=== PATIENT | male | born 1990 ===

== ENCOUNTER 2021-07-26 15:07 | Outpatient (REF) | payer MEDICAID, SELFPAY ==
[2021-07-26 15:25] LABS: HCT 41.8 % (40.0-50.0); HGB 14.4 g/dL (13.5-17.5); MCH 29.9 pg (27.0-33.0); MCHC 34.4 % (32.0-36.0); MCV 86.9 fL (80-95); MPV 9.5 fL (8.0-11.0); Platelet Count 283 10^3/uL (130-400); RBC 4.81 10^6/uL (4.36-5.78); RDW 11.5 % (11.8-14.1); RDW-SD 36.6 fL; WBC 4.58 10^3/uL (4.4-10.8)
[2021-07-26 16:09] LABS: ALT 25 U/L (16-63); AST 17 U/L (15-37); Albumin 4.3 g/dL (3.4-5.0); Alkaline Phosphatase 63 U/L (46-116); Anion Gap 7.5 mmol/L (3-11); BUN 16 mg/dL (7-18); Bilirubin, Total 0.4 mg/dL (0.2-1.0); CO2 31.5 mmol/L (21.0-32.0); CREATININE 0.9 mg/dL (0.70-1.30); Calcium 9.2 mg/dL (8.5-10.1); Chloride 103 mmol/L (98-107); Ferritin 113 ng/mL (26-388); Glucose 77 mg/dL (74-106); Potassium 4.3 mmol/L (3.5-5.1); Sodium 142 mmol/L (136-145); Total Protein 7.3 g/dL (6.4-8.2); Vitamin B12 631 pg/mL (193-986)
== END 2021-07-26 15:08 | disposition home or self-care (01) ==
LOC: NCHCN 15:07
PROVIDERS: Visit Provider Physician Assistant
DX: R53.83 Other fatigue (principal)
CPT/HCPCS: 80053; 85027; 82607; 82728

== ENCOUNTER 2021-10-12 13:52 | Outpatient (REF) | payer MEDICAID, SELFPAY ==
[2021-10-12 15:31] LABS: Abs Immature Grans 0.02 10^3/uL (0.0-0.06); Absolute Basophil Count 0.07 10^3/uL (0.0-0.2); Absolute Eosinophil Count 0.38 10^3/uL (0.0-0.7); Absolute Lymphocyte Count 1.53 10^3/uL (1.2-3.4); Absolute Neutrophil Count 3.08 10^3/uL (1.2-6.7); Basophils % 1.3; Eosinophils % 6.8; HCT 42.7 % (40.0-50.0); HGB 14.5 g/dL (13.5-17.5); Immature Grans % 0.4; Lymphocytes % 27.4; MCH 30.1 pg (27.0-33.0); MCV 88.8 fL (80-95); MPV 9.3 fL (8.0-11.0); Neutrophils % 55.1; Nucleated RBC 0 %; Platelet Count 261 10^3/uL (130-400); RBC 4.81 10^6/uL (4.36-5.78); RDW 11.5 % (11.8-14.1); RDW-SD 36.8 fL; WBC 5.58 10^3/uL (4.4-10.8)
[2021-10-12 15:36] LABS: Anion Gap 7.5 mmol/L (3-11); BUN 11 mg/dL (7-18); CO2 31.5 mmol/L (21.0-32.0); Calcium 9.3 mg/dL (8.5-10.1); Chloride 103 mmol/L (98-107); Glucose 92 mg/dL (74-106); Potassium 4.1 mmol/L (3.5-5.1); Sodium 142 mmol/L (136-145)
== END 2021-10-12 13:53 | disposition home or self-care (01) ==
LOC: LBN 13:52
PROVIDERS: Visit Provider Orthopaedic Surgery Orthopaedic Surgery of the Spine
DX: M51.16 Intervertebral disc disorders with radiculopathy, lumbar region (principal)
CPT/HCPCS: 80048; 85025

== ENCOUNTER 2021-12-20 18:05 | Outpatient (REF) | payer MEDICAID, SELFPAY ==
[2021-12-20 20:23] LABS: HCT 42.5 % (40.0-50.0); HGB 14.4 g/dL (13.5-17.5); MCH 29.5 pg (27.0-33.0); MCHC 33.9 % (32.0-36.0); MCV 87.1 fL (80-95); MPV 9.5 fL (8.0-11.0); Platelet Count 278 10^3/uL (130-400); RBC 4.88 10^6/uL (4.36-5.78); RDW 11.2 % (11.8-14.1); RDW-SD 35.4 fL; WBC 7.02 10^3/uL (4.4-10.8)
[2021-12-20 20:37] LABS: ALT 22 U/L (16-63); AST 16 U/L (15-37); Albumin 4.5 g/dL (3.4-5.0); Alkaline Phosphatase 81 U/L (46-116); Anion Gap 9.4 mmol/L (3-11); BUN 13 mg/dL (7-18); Bilirubin, Total 0.3 mg/dL (0.2-1.0); CO2 29.6 mmol/L (21.0-32.0); CREATININE 0.9 mg/dL (0.70-1.30); Calcium 9.3 mg/dL (8.5-10.1); Chloride 102 mmol/L (98-107); Glucose 90 mg/dL (74-106); Potassium 3.9 mmol/L (3.5-5.1); Sodium 141 mmol/L (136-145); Total Protein 7.5 g/dL (6.4-8.2)
== END 2021-12-20 18:06 | disposition home or self-care (01) ==
LOC: LBN 18:05
PROVIDERS: Visit Provider Nurse Practitioner Family
DX: R10.9 Unspecified abdominal pain (principal); B83.9 Helminthiasis, unspecified
CPT/HCPCS: 80053; 85027

== ENCOUNTER 2022-01-02 16:34 | Outpatient (REF) | payer MEDICAID, SELFPAY ==
[2022-01-04 00:19] LABS: Campylobacter PCR Negative (Negative); Salmonella PCR Negative (Negative); Shiga Toxin PCR Negative (Negative); Shigella/Enteroinvasive Ecoli Negative (Negative)
[2022-01-04 14:06] LABS: Helicobacter pylori Ag, Feces Negative (Negative)
== END 2022-01-02 16:35 | disposition home or self-care (01) ==
LOC: NCHCN 16:34
PROVIDERS: Visit Provider Physician Assistant
DX: K29.70 Gastritis, unspecified, without bleeding (principal)
CPT/HCPCS: 87329; 87338; 87493; 87505

== ENCOUNTER → 2022-04-14 00:38 | Outpatient (CLI) | payer MEDICAID, SELFPAY ==
--- NOTE | 2022-04-14 | DI.MRI_ITS ---
Exam(s) MR LUMBAR SPINE WO EXAM: MR LUMBAR SPINE WO CLINICAL HISTORY: HX LUMBAR DISCETOMY Z98.890 RT LUMBAR RADICULOPATHY M54.16. TECHNIQUE: Multiplanar multisequence MRI was performed. COMPARISON: CR XR LUMBAR SPINE 1 VIEW from 10/14/2021 FINDINGS: MR examination lumbosacral spine was performed according to the usual protocol. No significant bony signal abnormality seen. Patient has reportedly had a prior lumbar laminectomy/d iscectomy which appears to have been on the right at L5-S1. At L5-S1, there is right-sided prominence of the disc contour which may represent residual or recurre nt disc herniation. There is an associated high signal focus consistent with an annulus tear. No gr oss neural impingement is identified associated with these findings. There is no central canal spina l stenosis or neural foraminal stenosis. Conus medullaris appears intact. Spinal canal appears intact from the lower thoracic region to L4-5. No disc herniation, central canal spinal stenosis, or neural foraminal stenosis identified at these levels. IMPRESSION: Postoperative changes at L5-S1 on the right. Prominence of right L5-S1 disc contour noted which may represent small recurrent or persistent disc herniation. No gross neural impingement. Please correl ate clinically. DATA REPOSITORY:
== END ==
PROVIDERS: Visit Provider Physical Medicine & Rehabilitation
DX: M54.16 Radiculopathy, lumbar region (principal); Z98.890 Other specified postprocedural states
CPT/HCPCS: 72148